=== PATIENT | female | born 1970 | race Caucasian/White ===

== ENCOUNTER 2016-07-13 16:20 | Emergency (ER) | payer BC ==
[~2016-07-13] VITALS: Ht 167.6 cm; Wt 125.2 kg
[2016-07-13] MEDS ORDERED: CARV12.52 PO (16:29)
[2016-07-13] MEDS ORDERED: LISI-338 PO (16:29)
[2016-07-13] MEDS ORDERED: PANT40TA5 PO (16:29)
[2016-07-13] MEDS ORDERED: LEVO175T5 PO (16:29)
[2016-07-13] MEDS ORDERED: MORP15TA PO (17:42)
[2016-07-13] MEDS ORDERED: SULF1TAB24 PO (17:42)
--- NOTE | 2016-07-13 17:46 | PHYS DOC ---
Past Medical History Past Medical History: Hypertension, Hypothyroid Past Surgical History: Hysterectomy, Other Additional Past Surgical Histo: thyroidectomy Additional Information: 03/29 ppd Alcohol Use: None Drug Use: None Adult General Chief Complaint Chief Complaint: LOWER EXT PAIN HPI HPI 46-year-old female presenting to the emergency department today after having right lower leg pain and swelling with rash and fever at home. She reports being seen in clinic for having fever and low back pain with mild polyuria and dysuria. She reports receiving a shot in the muscle of antibiotics which she does not room with the name of and being started on Keflex. She stated they were unsure if she had a urinary tract infection and are waiting for the results of what I'm assuming is a urine culture. They recently called her and told her her white blood cell counts were elevated and she had an infection in her body. She denies vision mentioning the reports blood cultures being positive. Review of systems was negative for chest pain shortness of breath. Positive for rash and right leg pain. All other review of systems is negative unless otherwise noted in history of present illness. Review of Systems Review of Systems SEE ABOVE. Allergies Allergies Allergies Coded Allergies Type Severity Reaction Last Updated Verified No Known Drug Allergies 07/13/16 No Physical Exam Physical Exam Constitutional: Well developed, well nourished, no acute distress, non-toxic appearance. HENT: Normocephalic, atraumatic, bilateral external ears normal, oropharynx moist, no oral exudates, nose normal. [] Eyes: PERRLA, EOMI, conjunctiva normal, no discharge. [] Neck: Normal range of motion, no tenderness, supple, no stridor. Cardiovascular:Heart rate regular rhythm, no murmur [] Lungs & Thorax: Bilateral breath sounds clear to auscultation Abdomen: Bowel sounds normal, soft, no tenderness, no masses, no pulsatile masses. [] Skin: Warm, dry, no erythema, no rash. [] Back: No tenderness, no CVA tenderness. Extremities: Patient has erythema on the anterior surface of her lower extremity. The rash is macular in nature. Normal neurovascular status distally. She does not have an effusion in the right knee. No pain with range of motion of the knee. The rash is mostly on the anterior portion of her leg. Neurologic: Alert and oriented X 3, normal motor function, normal sensory function, no focal deficits noted. Psychologic: Affect normal, judgement normal, mood normal. Current Patient Data Vital Signs Vital Signs Date Time Temp Pulse Resp B/P Pulse Ox O2 Delivery O2 Flow Rate FiO2 07/13/16 16:29 97.9 91 18 141/98 98 Room Air 97.9 EKG EKG [] Radiology/Procedures Radiology/Procedures [] Course & Med Decision Making Course & Med Decision Making Pertinent Labs and Imaging studies reviewed. (See chart for details) [] 46-year-old female presenting to the emergency department with fever and rash after receiving to medications including an intramuscular shot of which the patient is not sure and I do not have access to the patient's medical records to review. The oral medication she was prescribed was Keflex. Differential diagnosis included cellulitis versus allergic reaction. The rash was in the same extremity that she received this shot so this is possibly related. Clinically, the rash appears to be more uticarial in nature. I discussed the case with Dr. San who stated the patient had been on antibiotics for pyelonephritis. Given the patient's rash after initiating antibiotics I changed the patient's antibiotic regimen to Bactrim to follow up with her primary care physician. I also provided her with pain medication to go home with. [id number] discharge instructions were given. Return precautions given. Patient comfortable with plan. Dragon Disclaimer Dragon Disclaimer This electronic medical record was generated, in whole or in part, using a voice recognition dictation system. Departure Departure Impression: Primary Impression: Rash Additional Impressions: Pyelonephritis Allergic reaction Disposition: 01 HOME, SELF-CARE Condition: STABLE Referrals: DORCAS SAN MD (PCP) Patient Instructions: Pyelonephritis, Adult Additional Instructions: Thank you for allowing us to participate in your care today. Stop taking the antibiotic that was prescribed to you today. I provided you with a new antibiotic. Followup with your primary care physician in 3 days if your symptoms do not improve. If you do not have a primary care provider you can ask for a list of our primary care providers. Return to the emergency department you have any new or concerning findings. This should be evaluated by the primary care physician and any necessary consulting services for continued management within a few days after discharge. Return to emergency room if you have any new or concerning symptoms including but not limited to fever, chills, nausea, vomiting, intractable pain, any new rashes, chest pain, shortness of air, uncontrolled bleeding, difficulty breathing, and/or vision loss. You may have been prescribed medication that can change in your level of thinking and ability to operate machinery. These medications include hydrocodone and Ativan. Also, Benadryl has been known to do this as well. Be sure to check with your pharmacist and ask if the medications you've prescribed can affect your level of consciousness. I recommend not operating heavy machinery or driving while on medication such as these. Scripts Morphine Sulfate 15 Mg Tablet1 Tab PO PRN Q6-8HRS PRN SEVERE PAIN #8 TAB Prov:YAYO BOSTON MD 07/13/16 Sulfamethoxazole/Trimethoprim (Bactrim Ds Tablet)1 Each Tablet1 Tab PO BID #14 TAB Prov:YAYO BOSTON MD 07/13/16 Problem Qualifiers Additional Impressions: Allergic reaction Encounter type: initial encounter Qualified Code: T78.40XA - Allergy, unspecified, initial encounter YAYO BOSTON MD Jul 13, 2016 17:46
[2016-07-13 18:02] LABS: BILIRUBIN,URINE NEGATIVE (NEG); GLUCOSE,URINE NEGATIVE (NEG); NITRITE,URINE NEGATIVE (NEG); PH,URINE 6.5; PROTEIN,URINE NEGATIVE (NEG-TRACE)
[2016-07-13 18:05] LABS: NEG OBC UR NEG; POS OBC UR POS
[2016-07-13 18:10] LABS: BACTERIA,URINE FEW /HPF (0-FEW); RBC,URINE RARE /HPF (0-2); SQUAMOUS EPITHELIAL CELL,UR FEW /LPF
[2016-07-13 18:38] LABS: BASO # 0.1 x10^3/uL (0.0-0.2); BASO % 1 % (0-3); EOS % 3 % (0-3); HEMATOCRIT 44.6 % (36.0-47.0); HEMOGLOBIN 14.6 g/dL (12.0-15.5); LYMPH # 2.5 x10^3/uL (1.0-4.8); LYMPH % 23 % (24-48); MEAN CORPUSCULAR HEMOGLOBIN 29 pg (25-35); MEAN CORPUSCULAR HGB CONC 33 g/dL (31-37); MEAN CORPUSCULAR VOLUME 88 fL (79-100); MONO % 7 % (0-9); NEUT % 66 % (31-73); PLATELET COUNT 276 x10^3/uL (140-400); RED BLOOD COUNT 5.09 x10^6/uL (3.50-5.40); WHITE BLOOD COUNT 10.8 x10^3/uL (4.0-11.0)
[2016-07-13 18:59] LABS: CALCIUM 8.8 mg/dL (8.5-10.1); CREATININE 0.9 mg/dL (0.6-1.0); GFR 67.1; POTASSIUM 3.4 mmol/L (3.5-5.1)
[2016-07-13 19:30] VITALS: BP 141/92
[2016-07-13] MEDS ORDERED: MORPHINE IR 15 MG TABLET PO ONE (19:30)
[2016-07-13] MEDS ORDERED: ACETAMINOPHEN 325 MG TABLET. PO ONE (19:30)
== END 2016-07-13 19:51 | disposition home or self-care (01) ==
LOC: ER 16:20
DX: R21 Rash and other nonspecific skin eruption (principal); N12 Tubulo-interstitial nephritis, not specified as acute or chronic; T78.40XA Allergy, unspecified, initial encounter; E03.9 Hypothyroidism, unspecified; I10 Essential (primary) hypertension; F17.200 Nicotine dependence, unspecified, uncomplicated; X58.XXXA Exposure to other specified factors, initial encounter
CPT/HCPCS: 36415; 80048; 81001; 81025; 85027; 87086; 99284

== ENCOUNTER 2016-07-30 12:37 | Inpatient (IN) | payer BC ==
[~2016-07-30] VITALS: Ht 167.6 cm; Wt 127.9 kg
[~2016-07-30 12:37] MED LIST: CARV12.52 PO; LEVO175T5 PO; LISI-338 PO; MORP15TA PO; PANT40TA5 PO; SULF1TAB24 PO
[2016-07-30 13:14] LABS: BILIRUBIN,URINE NEGATIVE (NEG); GLUCOSE,URINE NEGATIVE (NEG); NITRITE,URINE NEGATIVE (NEG); PROTEIN,URINE NEGATIVE (NEG-TRACE); UROBILINOGEN,URINE 0.2 mg/dL (0.2 mg/dL)
[2016-07-30 13:27] LABS: BACTERIA,URINE 0 /HPF (0-FEW); RBC,URINE 0 /HPF (0-2); WBC,URINE 0 /HPF (0-4)
[2016-07-30 13:28] LABS: SQUAMOUS EPITHELIAL CELL,UR FEW /LPF
--- NOTE | 2016-07-30 13:42 | PHYS DOC ---
Past Medical History Past Medical History: Hypertension, Hypothyroid, UTI Past Surgical History: Hysterectomy, Other Additional Past Surgical Histo: thyroidectomy Alcohol Use: None Drug Use: None Adult General Chief Complaint Chief Complaint: ABDOMINAL PAIN HPI HPI 46-year-old female presents the emergency department today with suprapubic abdominal pain that radiates to the flank bilaterally. The pain is sharp intermittent and moderate. She has a history of UTIs and was recently treated with Bactrim and started on Keflex a few days ago by her primary care doctor. Review of systems is negative for chest pain shortness of breath nausea vomiting. She denies fevers chills. She denies diarrhea or constipation. She denies bloody stools. All other review of systems is negative unless otherwise noted in history of present illness. Review of Systems Review of Systems SEE ABOVE. Allergies Allergies Allergies Coded Allergies Type Severity Reaction Last Updated Verified No Known Drug Allergies 07/13/16 No Physical Exam Physical Exam Constitutional: Well developed, well nourished, no acute distress, non-toxic appearance. HENT: Normocephalic, atraumatic, bilateral external ears normal, oropharynx moist, no oral exudates, nose normal. [] Eyes: PERRLA, EOMI, conjunctiva normal, no discharge. [] Neck: Normal range of motion, no tenderness, supple, no stridor. Cardiovascular:Heart rate regular rhythm, no murmur [] Lungs & Thorax: Bilateral breath sounds clear to auscultation Abdomen: Soft mildly tender in the suprapubic region. Negative McBurney's point. Negative Sigala sign. No rebound tenderness or guarding is present. No ecchymosis or erythema of the abdominal wall. Skin: Warm, dry, no erythema, no rash. [] Back: No tenderness, mild left and right CVA tenderness present. Extremities: No tenderness, no cyanosis, no clubbing, ROM intact, no edema. [] Neurologic: Alert and oriented X 3, normal motor function, normal sensory function, no focal deficits noted. [] Psychologic: Affect normal, judgement normal, mood normal. [] Current Patient Data Vital Signs Vital Signs Date Time Temp Pulse Resp B/P (MAP) Pulse Ox O2 Delivery O2 Flow Rate FiO2 07/30/16 13:01 98.8 55 20 166/58 (94) 97 98.8 Lab Values Laboratory Tests Test 07/30/16 13:05 Urine Collection Type Unknown Urine Color Yellow Urine Clarity Clear Urine pH 6.0 Urine Specific Richardson <=1.005 Urine Protein Negative mg/dL (NEG-TRACE) Urine Glucose (UA) Negative mg/dL (NEG) Urine Ketones (Stick) Negative mg/dL (NEG) Urine Blood Trace (NEG) Urine Nitrite Negative (NEG) Urine Bilirubin Negative (NEG) Urine Urobilinogen Dipstick 0.2 mg/dL (0.2 mg/dL) Urine Leukocyte Esterase Negative (NEG) Urine RBC 0 /HPF (0-2) Urine WBC 0 /HPF (0-4) Urine Squamous Epithelial Cells Few /LPF Urine Bacteria 0 /HPF (0-FEW) EKG EKG [] Radiology/Procedures Radiology/Procedures [] Course & Med Decision Making Course & Med Decision Making Pertinent Labs and Imaging studies reviewed. (See chart for details) [] 46-year-old female with suprapubic abdominal pain. Afebrile here. Blood work was obtained. CT abdomen and pelvis obtained. I discussed case with the primary care doctor Dr. San. The patient is had multiple recurrent UTIs and her previous microbiology urine cultures have shown significant resistance patterns including being resistant to Bactrim which she was placed on july 13 of this year. (her prior culture at that time was sensitive to bactrim). We decided to admit the patient given her failure of outpatient therapy for clinical monitoring. Dragon Disclaimer Dragon Disclaimer This electronic medical record was generated, in whole or in part, using a voice recognition dictation system. Departure Departure Impression: Primary Impression: Abdominal pain Additional Impression: History of urinary tract infection Disposition: HOME, SELF-CARE Admitting Physician: Dorcas San Condition: STABLE Referrals: DORCAS SAN MD (PCP) Problem Qualifiers YAYO BOSTON MD July 30, 2016 13:42
[2016-07-30] MEDS ORDERED: IV NORMAL SALINE 1000ML BAG 1,000 ML IV SCH (13:46)
[2016-07-30 13:53] LABS: BASO # 0.1 x10^3/uL (0.0-0.2); BASO % 1 % (0-3); EOS % 3 % (0-3); HEMATOCRIT 41.3 % (36.0-47.0); HEMOGLOBIN 14.1 g/dL (12.0-15.5); LYMPH # 2.4 x10^3/uL (1.0-4.8); LYMPH % 34 % (24-48); MEAN CORPUSCULAR HEMOGLOBIN 30 pg (25-35); MEAN CORPUSCULAR HGB CONC 34 g/dL (31-37); MEAN CORPUSCULAR VOLUME 87 fL (79-100); MONO % 6 % (0-9); NEUT % 56 % (31-73); PLATELET COUNT 328 x10^3/uL (140-400); RED BLOOD COUNT 4.75 x10^6/uL (3.50-5.40); RED CELL DISTRIBUTION WIDTH 14.1 % (11.5-14.5)
[2016-07-30 13:58] LABS: CALCIUM 8.6 mg/dL (8.5-10.1); CREATININE 0.9 mg/dL (0.6-1.0); GFR 67.1; POTASSIUM 3.8 mmol/L (3.5-5.1)
[2016-07-30] MEDS ORDERED: MORPHINE SULFATE 2 MG/ML DISP.SYRIN. IV PRN (14:00)
[2016-07-30] MEDS ORDERED: ONDANSETRON PF 4 MG/2 ML VIAL. IV PRN (14:00)
[2016-07-30 14:03] LABS: ALBUMIN 3.2 g/dL (3.4-5.0); ALBUMIN/GLOBULIN RATIO 0.9 (1.0-1.7); TOTAL BILIRUBIN 0.4 mg/dL (0.2-1.0); TOTAL PROTEIN 6.8 g/dL (6.4-8.2)
--- NOTE | 2016-07-30 16:30 | RAD ---
Indication abdominal pain. Bilateral flank pain. Axial noncontrast images through the abdomen and pelvis were obtained. The study is limited by virtue of the lack of IV and gastrointestinal contrast. No prior imaging is available. The lung bases are clear. There is a small hiatus hernia. There is slight thickening of the esophagus at the GE junction. If esophageal pathology is suspect endoscopy would be advised. Some suggested calcification is seen associated with the herniated portion of the stomach as well as the fundus of the stomach. The liver and spleen appear unremarkable and the gallbladder appears grossly normal.. There is enlargement of the left adrenal gland. It measures approximately 2.6 cm in greatest dimension. Hounsfield unit numbers are 8 indicative of a benign adenoma. The right adrenal gland appears normal. There are no renal calculi on either side. There is no hydronephrosis hydroureter or calcification seen along the course of either ureter. No significant central or retroperitoneal adenopathy is seen. An acute finding in the abdomen is not seen. In the pelvis occasional diverticula are seen associated with the large bowel. No active inflammation is seen. An acute finding in the pelvis is not apparent. Degenerative changes are noted in the lumbar spine. IMPRESSION: No acute finding seen in the abdomen or pelvis. Small hiatus hernia. Suggested mild thickening of the distal esophagus at the GE junction. If esophageal pathology is suspect endoscopy would be Benign left adrenal adenoma PQRS Compliance Statement: One or more of the following individualized dose reduction techniques were utilized for this examination: 1. Automated exposure control 2. Adjustment of the mA and/or kV according to patient size 3. Use of iterative reconstruction technique
[2016-07-30 17:00] VITALS: BP 137/89
== END 2016-07-30 18:00 | disposition home or self-care (01) | DRG 392 ==
LOC: ER 12:37 → 5 SOUTH 15:30
PROVIDERS: ADMIT Internal Medicine; ATTEND Internal Medicine
DX: R10.9 Unspecified abdominal pain (principal); E03.9 Hypothyroidism, unspecified; I10 Essential (primary) hypertension; Z87.440 Personal history of urinary (tract) infections; Z90.710 Acquired absence of both cervix and uterus
CPT/HCPCS: 36415; 74176; 80053; 81001; 83690; 85027; 96374; 96375; J2270; J2405; J7030; 99285-25

== ENCOUNTER → 2016-08-31 | Outpatient (CLI) | payer BC ==
--- NOTE | 2016-09-01 09:39 | SLEEP ---
DATE OF STUDY: 08/31/2016 DATE OF STUDY: 08/31/2016 ATTENDING PHYSICIAN: Dr. Dorcas Smith. The patient is a 46 years old, who weighs 278 pounds with a BMI of 44.9. The patient's [place] score was 14. Home sleep study was performed by [facility]. The total recording time was 441 minutes. During the night study, the patient had 2 central apneas, 32 obstructive apneas, no mixed apneas. There were 3 hypopneas. The patient's apnea-hypopnea index was 5 per hour with the supine index was 7 per hour. Review of nocturnal oximetry study revealed that patient spent 48 minutes with oxygen saturation of less than 90%. The patient's average saturation was 92% with the lowest of 86%. Mean heart rate of 60 beats per minute. IMPRESSION: 1. Mild sleep apnea-hypopnea syndrome with an apnea-hypopnea index of 5 per hour. 2. Nocturnal hypoxia secondary to obstructive sleep apnea/ OHS. RECOMMENDATIONS: 1. The patient has mild sleep apnea, which can be treated with multiple options. I would recommend weight loss as the initial treatment option. 2. If patient remains clinically symptomatic, then consider either a trial of oral appliance or CPAP titration study. 3. Avoid BOX ORDER PERSON depressants. 4. Caution regarding driving until symptoms of sleep apnea resolve with the above recommendations. DANIAL GUZMAN MD DR: GERMAN/tammi JOB#: [id number] / [id number] DORCAS Ocampo MD [facility]
== END | disposition home or self-care (01) ==
LOC: RT 06:04
PROVIDERS: ATTEND Nurse Practitioner
DX: G47.00 Insomnia, unspecified (principal); G47.33 Obstructive sleep apnea (adult) (pediatric)
CPT/HCPCS: G0399

== ENCOUNTER 2017-03-12 18:31 | Emergency (ER) | payer BC ==
[~2017-03-12] VITALS: Ht 167.6 cm; Wt 129.3 kg
[2017-03-12 18:50] VITALS: BP 153/98
[2017-03-12 19:08] LABS: BILIRUBIN,URINE NEGATIVE (NEG); GLUCOSE,URINE NEGATIVE (NEG); NITRITE,URINE NEGATIVE (NEG); PROTEIN,URINE NEGATIVE (NEG-TRACE)
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
[2017-03-12 19:15] LABS: BACTERIA,URINE MODERATE /HPF (0-FEW); RBC,URINE 0 /HPF (0-2); SQUAMOUS EPITHELIAL CELL,UR MANY /LPF; WBC,URINE OCC /HPF (0-4)
[2017-03-12] MEDS ORDERED: HYDROcodone/APAP 5/325MG 1 TAB TABLET ONE (19:56)
== END 2017-03-12 20:00 | disposition home or self-care (01) ==
LOC: ER 18:31
DX: S29.012A Strain of muscle and tendon of back wall of thorax, initial encounter (principal); R51 Headache; I10 Essential (primary) hypertension; E89.0 Postprocedural hypothyroidism; Z87.440 Personal history of urinary (tract) infections; Z90.710 Acquired absence of both cervix and uterus; V43.52XA Car driver injured in collision with other type car in traffic accident, initial encounter; Y93.I9 Activity, other involving external motion; Y92.410 Unspecified street and highway as the place of occurrence of the external cause; Y99.8 Other external cause status
CPT/HCPCS: 81001; 87086; 99284

== ENCOUNTER → 2017-04-06 | Outpatient (CLI) | payer OTHER | END | disposition home or self-care (01) | LOC: KCIC 15:33 | DX: M19.011 Primary osteoarthritis, right shoulder (principal); V89.2XXD Person injured in unspecified motor-vehicle accident, traffic, subsequent encounter | CPT/HCPCS: 73030 ==

== ENCOUNTER → 2017-07-20 | Outpatient (CLI) | payer BC, OTHER ==
[~2017-07-20] MED LIST changes: -CARV12.52 PO; +IOHEXOL 180 MG/ML 10 ML VIAL.; -LEVO175T5 PO; -LISI-338 PO; -MORP15TA PO; -PANT40TA5 PO; -SULF1TAB24 PO; +methylPREDNISolone ACETATE 40 MG/ML VIAL.; +methylPREDNISolone ACETATE 80 MG/ML VIAL.
== END | disposition home or self-care (01) ==
LOC: PNCL 08:55
DX: M51.16 Intervertebral disc disorders with radiculopathy, lumbar region (principal); I10 Essential (primary) hypertension; M19.90 Unspecified osteoarthritis, unspecified site; E03.9 Hypothyroidism, unspecified; E66.9 Obesity, unspecified; F17.210 Nicotine dependence, cigarettes, uncomplicated; Z85.850 Personal history of malignant neoplasm of thyroid; K21.9 Gastro-esophageal reflux disease without esophagitis; Z90.710 Acquired absence of both cervix and uterus; Z98.890 Other specified postprocedural states; Z79.899 Other long term (current) drug therapy
CPT/HCPCS: 62323; J1030; J1040; Q9965

== ENCOUNTER → 2017-08-03 | Outpatient (CLI) | payer BC, OTHER | LOC: PNCL 07:33 | DX: M51.16 Intervertebral disc disorders with radiculopathy, lumbar region (principal); M48.061 Spinal stenosis, lumbar region without neurogenic claudication | CPT/HCPCS: 62323; J1030; J1040; Q9965 ==

== ENCOUNTER 2017-09-27 11:26 | Emergency (ER) | payer BC | END 2017-09-27 14:09 | disposition home or self-care (01) | LOC: ER 11:26 | DX: R22.43 Localized swelling, mass and lump, lower limb, bilateral (principal); I10 Essential (primary) hypertension; E03.9 Hypothyroidism, unspecified; Z87.440 Personal history of urinary (tract) infections; Z90.710 Acquired absence of both cervix and uterus; Z90.49 Acquired absence of other specified parts of digestive tract | CPT/HCPCS: 93970; 99284-25 ==

== ENCOUNTER → 2017-12-08 | Outpatient (CLI) | payer BC ==
[2017-09-27 14:00] VITALS: BP 121/78
[~2017-12-08] MED LIST changes: +CARV12.52 PO; +CYCL10TA2 PO; +GABA-586 PO; -IOHEXOL 180 MG/ML 10 ML VIAL.; +LEVO175T5 PO; +LISI-338 PO; +MORP15TA PO; +NAPR-514 PO; +PANT40TA5 PO; +SULF1TAB24 PO; -methylPREDNISolone ACETATE 40 MG/ML VIAL.; -methylPREDNISolone ACETATE 80 MG/ML VIAL.
--- NOTE | 2017-12-08 14:16 | KCIC ---
EXAM: Chest, 2 views. HISTORY: Pneumonia. COMPARISON: None. FINDINGS: 2 views of the chest are obtained. There is diffuse central predominant interstitial infiltrate. There is no consolidation, pleural effusion or pneumothorax. The heart is normal in size. IMPRESSION: Diffuse central predominant interstitial infiltrate. Electronically signed by: Farheen Lang MD (12/08/2017 2:13 PM) [place] [id number]
== END | disposition home or self-care (01) ==
LOC: KCIC 13:23
PROVIDERS: ATTEND Internal Medicine
DX: J84.89 Other specified interstitial pulmonary diseases (principal); I10 Essential (primary) hypertension; M19.011 Primary osteoarthritis, right shoulder; E03.9 Hypothyroidism, unspecified; F17.210 Nicotine dependence, cigarettes, uncomplicated; K21.9 Gastro-esophageal reflux disease without esophagitis; Z87.440 Personal history of urinary (tract) infections; Z85.850 Personal history of malignant neoplasm of thyroid; Z90.49 Acquired absence of other specified parts of digestive tract; Z90.710 Acquired absence of both cervix and uterus
CPT/HCPCS: 71046

== ENCOUNTER → 2017-12-30 | Outpatient (CLI) | payer BC ==
[2017-09-27 14:00] VITALS: BP 121/78
--- NOTE | 2017-12-30 23:58 | PAIN ---
DATE OF SERVICE: 12/30/2017 PROGRESS NOTE FOR PAIN CLINIC DIAGNOSES: Lumbar radiculopathy with lumbar degenerative disk disease, lumbar herniated disk and lumbar spinal stenosis. HISTORY OF PRESENT ILLNESS: The patient is a 47-year-old female who returns for followup status post lumbar epidural steroid injection x 2, last seen on 08/03/2017. The patient reports that she did well but only for a few weeks, about 50% improvement but only for about 2-3 weeks and the pain returned basically to baseline in the low back, bilateral lower extremities, mostly in the posterior gluteus, posterior thighs, anterior lateral thighs, burning and stinging, also aching and sharp across the back, described as constant, becoming more severe, more unbearable, worse with weightbearing, walking and standing. The patient reports it does not awaken her from sleep at night. She feels better with sitting or lying down but with standing and walking, it is becoming more noticeable. The patient has had her gabapentin increased to 1200 mg a day and also is taking morphine sulfate, which does help the pain but only lasts for about 3-4 hours. The patient reports the pain is a 10 on a scale of 10 at its worst, 7 on average, is 5 at its least and is a 7 today. The patient reports no new motor or sensory deficits and no new bowel or bladder incontinence or other complaints. PHYSICAL EXAMINATION: VITAL SIGNS: The patient's blood pressure 133/79, pulse 61, respirations 18, temperature 98.7 degrees Fahrenheit, height 5 feet 6 inches and weight is 283 pounds. GENERAL: The patient is awake, alert, oriented, appropriate and very pleasant demeanor. HEENT: Head shows normocephalic and atraumatic. Extraocular movements are intact and symmetrical. Oral cavity: Mucous membranes moist and pink. Dentition is intact. NECK: Shows anterior throat supple without palpable lymphadenopathy noted. Swallow reflex symmetrical. CHEST: Shows normal on inspection. Breath sounds clear to auscultation bilaterally. HEART: Shows S1 and S2 clear. No murmurs auscultated. ABDOMEN: Soft, nontender and nondistended. No palpable organomegaly is noted. No rebound or guarding demonstrated. EXTREMITIES: The patient's lower extremities show deep tendon reflexes at 1+ in the patellar and tendo-calcaneus tendons. Motor exam is strong with 5/5 dorsiflexion, extension and equal. Peripheral pulses are 1+ posterior tibia. No peripheral edema is noted. Questions were discussed with the patient. The patient's old chart was reviewed as well as her current medication regimen updated. Current review of systems updated today as well and we discussed additional physical therapies as well as additional water therapy and she is currently a [employer] member and is using the pool for water aerobics. The patient reports when she is in the pool, she feels great and she feels she could do anything she wants. We discussed this and with regard to weight loss, the patient is working on this and also seeking some alternative surgical procedures for weight loss as well as she and her are both interested in doing this for themselves. We discussed some dietary strategies as well as exercise strategy and especially water therapy and aerobics and encouraged her to do this at least 3 times a week if she can in the pool with strengthening and core strengthening as well. The patient will work on this. We will be available for any interventional techniques if she decides she would like to pursue these. She is not interested in this at this time as she has been fairly limited in effectiveness. The patient will follow up at this time on as needed basis. ELY ARECHIGA MD DR: ALANIS/tammi JOB#: [id number] / [id number]
== END | disposition home or self-care (01) ==
LOC: PNCL 08:47
PROVIDERS: ATTEND Anesthesiology
DX: M51.16 Intervertebral disc disorders with radiculopathy, lumbar region (principal); M48.061 Spinal stenosis, lumbar region without neurogenic claudication
CPT/HCPCS: 99212

== ENCOUNTER → 2018-09-06 | Outpatient (CLI) | payer BC ==
[2017-09-27 14:00] VITALS: BP 121/78
[~2018-09-06] MED LIST changes: +CARV12.511 PO; -CARV12.52 PO; -GABA-586 PO; +GABA300C18 PO
--- NOTE | 2018-09-06 08:40 | RAD ---
Abdominal ultrasound, 09/06/2018: HISTORY: Abdominal pain The gallbladder is within normal limits in size. There is no sonographic evidence of cholelithiasis. The gallbladder ayala are not thickened. The common hepatic duct measures 5 mm which is at the upper limits of normal. There is no evidence of a hepatic mass. The pancreas and much of the aorta and inferior vena cava were obscured by overlying bowel. The spleen is of normal size. No renal abnormality is detected. No free fluid is evident in the abdomen. IMPRESSION: 1. No acute abdominal abnormality is detected. 2. The pancreas and central retroperitoneum were obscured by overlying bowel. Electronically signed by: Jordan Gant MD (09/06/2018 8:37 AM) [facility]
== END | disposition home or self-care (01) ==
LOC: US 07:08
PROVIDERS: ATTEND Internal Medicine
DX: R10.9 Unspecified abdominal pain (principal)
CPT/HCPCS: 76700

== ENCOUNTER → 2020-11-18 | Outpatient (CLI) | payer OTHER ==
[2017-09-27 14:00] VITALS: BP 121/78
[~2020-11-18] MED LIST changes: -LISI-338 PO; +LISI-517 PO; -PANT40TA5 PO; +PANT40TA77 PO
--- NOTE | 2020-11-18 13:39 | KCIC ---
EXAM: Left great toe, 2 views. HISTORY: Pain and swelling. Trauma. COMPARISON: None. FINDINGS: 2 views of the left great toe are obtained. There is no convincing fracture. There is no fo reign body. There is slight deformity of the distal aspect of the fifth proximal phalanx, likely deve lopmental or the sequela of a healed fracture. There is accessory navicular. There is a moderate plan tar spur. There are prominent fragmented enthesophytes at the Achilles tendon insertion. IMPRESSION: No convincing acute osseous finding. Electronically signed by: Farheen Lang MD (11/18/2020 1:37 PM) [id number]
== END ==
LOC: KCIC 12:33
PROVIDERS: ATTEND Internal Medicine
DX: M77.8 Other enthesopathies, not elsewhere classified (principal); M20.5X2 Other deformities of toe(s) (acquired), left foot
CPT/HCPCS: 73660

== ENCOUNTER → 2021-02-06 | Outpatient (CLI) | payer OTHER ==
[~2021-02-06] MED LIST changes: +CYCL10TA19 PO; -CYCL10TA2 PO; +HYDR12.575 PO; -LISI-517 PO; +LISI5TAB15 PO
[2021-02-06 09:08] VITALS: BP 128/75
--- NOTE | 2021-02-06 14:14 | KCIC ---
EXAM: 3 Views Right Shoulder DATE: 02/06/2021 11:01 AM INDICATION: Reason: Acute Rt shoulder pain. / Spl. Instructions: / History: COMPARISON: No Prior FINDINGS: There is no evidence for acute fracture or dislocation. AC joint is congruent. Mild right AC joint de generative change. Glenohumeral osteophytes. Humeral head is not high riding. IMPRESSION: 1. No acute fracture or dislocation. 2. Mild right AC joint and glenohumeral joint degenerative change Electronically signed by: Subhash Regan MD (02/06/2021 2:12 PM) [id number]
== END ==
LOC: KCIC 10:57
PROVIDERS: ATTEND Physician Assistant
DX: M19.011 Primary osteoarthritis, right shoulder (principal); M25.711 Osteophyte, right shoulder
CPT/HCPCS: 73030

== ENCOUNTER → 2021-02-06 | Day surgery (SDC) | payer OTHER ==
[~2021-02-06] VITALS: Ht 167.6 cm; Wt 100.4 kg
[~2021-02-06] MED LIST changes: +HYDROmorphone 2 MG/ML VIAL IVP PRN; +IV RINGERS,LACTATED 1000ML 1,000 ML IV SCH; +MORPHINE SULFATE 2 MG/ML INJ. IVP PRN; +PROCHLORPERAZINE 10 MG/2 ML VIAL. IVP PRN; +PROPOFOL 10 MG/ML (20ML) VIAL. IV ONE; +fentaNYL PF VIAL 100 MCG/2 ML VIAL IVP PRN
[2021-02-06 06:58] VITALS: BP 140/80
[2021-02-06 09:08] VITALS: BP 128/75
== END | disposition home or self-care (01) ==
LOC: ENDOS 06:18
PROVIDERS: ATTEND Internal Medicine Gastroenterology
DX: Z12.11 Encounter for screening for malignant neoplasm of colon (principal); K64.0 First degree hemorrhoids; K57.30 Diverticulosis of large intestine without perforation or abscess without bleeding; K63.89 Other specified diseases of intestine; I10 Essential (primary) hypertension; K21.9 Gastro-esophageal reflux disease without esophagitis; M19.90 Unspecified osteoarthritis, unspecified site; F32.9 Major depressive disorder, single episode, unspecified; F17.210 Nicotine dependence, cigarettes, uncomplicated; Z86.010 Personal history of colon polyps; Z90.710 Acquired absence of both cervix and uterus; Z90.49 Acquired absence of other specified parts of digestive tract; Z98.890 Other specified postprocedural states; Z79.899 Other long term (current) drug therapy
CPT/HCPCS: 45378; J2704

== ENCOUNTER → 2021-03-03 | Outpatient (CLI) | payer OTHER ==
[2021-02-06 09:08] VITALS: BP 128/75
[~2021-03-03] MED LIST changes: +BARIUM SULFATE 105% 1,900 ML SUSP PO ONE; -HYDROmorphone 2 MG/ML VIAL IVP PRN; -IV RINGERS,LACTATED 1000ML 1,000 ML IV SCH; -MORPHINE SULFATE 2 MG/ML INJ. IVP PRN; -PROCHLORPERAZINE 10 MG/2 ML VIAL. IVP PRN; -PROPOFOL 10 MG/ML (20ML) VIAL. IV ONE; -fentaNYL PF VIAL 100 MCG/2 ML VIAL IVP PRN
--- NOTE | 2021-03-03 18:24 | RAD ---
EXAMINATION: DG AIR-CONTRAST BARIUM ENEMA 03/03/2021 8:01 AM HISTORY: Incomplete colonoscopy COMPARISON: None. TECHNIQUE: An overhead mural artist image was obtained. A rectal tube was inserted and the balloon gently in flated. Barium contrast was administered into the colon via the rectal tube and routine double contra st barium enema was performed. FINDINGS: Contrast flowed through the entire colon and refluxed into the small bowel. The colon distended declan lly without evidence of mass or stricture. On air contrast exam are 2 small round foci of contrast po oling in the sigmoid colon, likely in small diverticula. There is limited air contrast evaluation of the cecum, ascending colon, and splenic flexure due to retained contrast. Total fluoroscopic time:3.5 minute. IMPRESSION: 1. Contrast reached the small bowel. No evidence of obstructing colonic mass or stricture. 2. There are a few small diverticula in the sigmoid colon. Otherwise unremarkable exam. Electronically signed by: Ya Ozuna MD (03/03/2021 6:22 PM) [id number]
== END ==
LOC: RAD 10:18
PROVIDERS: ATTEND Internal Medicine Gastroenterology
DX: K57.30 Diverticulosis of large intestine without perforation or abscess without bleeding (principal); K56.699 Other intestinal obstruction unspecified as to partial versus complete obstruction
CPT/HCPCS: 74280

== ENCOUNTER → 2021-05-18 | Outpatient (CLI) | payer OTHER ==
[2021-02-06 09:08] VITALS: BP 128/75
[~2021-05-18] MED LIST changes: -BARIUM SULFATE 105% 1,900 ML SUSP PO ONE
[2021-05-18 08:17] LABS: BASO # 0.1 x10^3/uL (0.0-0.2); BASO % 1 % (0-3); EOS # 0.3 x10^3/uL (0.0-0.7); EOS % 4 % (0-3); HEMATOCRIT 40.6 % (36.0-47.0); HEMOGLOBIN 13.4 g/dL (12.0-15.5); LYMPH # 2.4 x10^3/uL (1.0-4.8); LYMPH % 29 % (24-48); MEAN CORPUSCULAR HEMOGLOBIN 31 pg (25-35); MEAN CORPUSCULAR HGB CONC 33 g/dL (31-37); MEAN CORPUSCULAR VOLUME 93 fL (79-100); MONO # 0.5 x10^3/uL (0.0-1.1); MONO % 6 % (0-9); NEUT % 61 % (31-73); PLATELET COUNT 325 x10^3/uL (140-400); RED BLOOD COUNT 4.36 x10^6/uL (3.50-5.40); RED CELL DISTRIBUTION WIDTH 13.6 % (11.5-14.5); WHITE BLOOD COUNT 8.2 x10^3/uL (4.0-11.0)
[2021-05-18 08:35] LABS: ALBUMIN 3.2 g/dL (3.4-5.0); TOTAL PROTEIN 6.5 g/dL (6.4-8.2)
[2021-05-18 08:36] LABS: CALCIUM 8.2 mg/dL (8.5-10.1); CREATININE 0.8 mg/dL (0.6-1.0); GFR 75.6; POTASSIUM 3.3 mmol/L (3.5-5.1); TOTAL BILIRUBIN 0.2 mg/dL (0.2-1.0)
[2021-05-18 08:43] LABS: CHOLESTEROL/HDL RATIO 2.5
[2021-05-18 08:47] LABS: THYROID STIM HORMONE (TSH) 0.714 uIU/mL (0.358-3.74)
[2021-05-18 09:37] LABS: FREE T4 1.18 ng/dL (0.76-1.46)
[2021-05-19 01:08] LABS: HEMOGLOBIN A1C 5.2 % (4.8-5.6)
[2021-05-19 13:24] LABS: CREAT RD UR 28.6 mg/dL (Not Estab.); MICRO CREAT RATIO <10 mg/g creat (0-29); MICROALB RD UR <3.0 ug/mL (Not Estab.)
== END ==
LOC: LAB 07:36
PROVIDERS: ATTEND Internal Medicine
DX: E11.9 Type 2 diabetes mellitus without complications (principal); E03.9 Hypothyroidism, unspecified
CPT/HCPCS: 80053; 80061; 82043; 82570; 83036; 84439; 84443; 85025

== ENCOUNTER 2021-05-23 12:30 | Emergency (ER) | payer OTHER ==
[~2021-05-23] VITALS: Ht 160 cm; Wt 81.8 kg
[2021-05-23] MEDS ORDERED: IV DEXTROSE 10% 500 ML IV ONE (12:39)
[2021-05-23] MEDS ORDERED: DEXTROSE ORAL GEL 15 GM TUBE. ONE (12:43)
[2021-05-23] MEDS ORDERED: DEXTROSE 50% 25 GM / 50ML DISP.SYRIN. IV ONE ×2 (12:45)
[2021-05-23 13:00] LABS: BASO # 0.1 x10^3/uL (0.0-0.2); BASO % 1 % (0-3); EOS # 0.9 x10^3/uL (0.0-0.7); EOS % 6 % (0-3); HEMATOCRIT 44.8 % (36.0-47.0); HEMOGLOBIN 14.5 g/dL (12.0-15.5); LYMPH # 5.2 x10^3/uL (1.0-4.8); LYMPH % 35 % (24-48); MEAN CORPUSCULAR HEMOGLOBIN 30 pg (25-35); MEAN CORPUSCULAR HGB CONC 32 g/dL (31-37); MEAN CORPUSCULAR VOLUME 94 fL (79-100); MONO # 1.6 x10^3/uL (0.0-1.1); MONO % 11 % (0-9); NEUT % 47 % (31-73); PLATELET COUNT 424 x10^3/uL (140-400); RED BLOOD COUNT 4.79 x10^6/uL (3.50-5.40); RED CELL DISTRIBUTION WIDTH 13.6 % (11.5-14.5); WHITE BLOOD COUNT 14.8 x10^3/uL (4.0-11.0)
[2021-05-23 13:03] LABS: CALCIUM 8.8 mg/dL (8.5-10.1); CREATININE 0.8 mg/dL (0.6-1.0); GFR 75.6; POTASSIUM 3.2 mmol/L (3.5-5.1)
[2021-05-23 13:09] LABS: ALBUMIN 3.7 g/dL (3.4-5.0); ALBUMIN/GLOBULIN RATIO 1.1 (1.0-1.7); TOTAL BILIRUBIN 0.3 mg/dL (0.2-1.0); TOTAL PROTEIN 7.1 g/dL (6.4-8.2)
--- NOTE | 2021-05-23 13:18 | RAD ---
AP chest. HISTORY: Altered mental status AP view was taken of the chest. Lungs are free of infiltrates. Heart is normal in size. There is no p leural effusion. IMPRESSION: 1. No acute infiltrates. Electronically signed by: Kale Lehman MD (05/23/2021 1:15 PM) [id number]
[2021-05-23 13:46] LABS: PROTHROMBIN TIME PATIENT 12.3 SEC (11.7-14.0)
[2021-05-23] MEDS ORDERED: IOHEXOL 300 MG/ML 100ML VIAL. IV ONE (14:00)
[2021-05-23] MEDS ORDERED: POTASSIUM BICARB 20 MEQ EFFERVESCENT TABLET. PO ONE (14:00)
[2021-05-23] MEDS ORDERED: CONTRAST GIVEN. MC PRN (14:15)
--- NOTE | 2021-05-23 14:37 | RAD ---
CT abdomen pelvis with contrast dated 05/23/2021. COMPARISON: 07/30/2016. INDICATION: Hypoglycemia. TECHNIQUE: Contiguous axial imaging the M pelvis performed after the administration of 75 cc Omnipaque 300. One or more of the following individualized dose reduction techniques were utilized for this examinat ion: 1. Automated exposure control 2. Adjustment of the mA and/or kV according to patient size 3. Use of iterative reconstruction technique FINDINGS: Limited images of lung bases are clear. Heart size is upper limits of normal. No pleural or pericardi al effusion. Liver, spleen, pancreas are unremarkable. No apparent pancreatic mass. The intrahepatic and extra hep atic biliary tree are mildly dilated. No apparent filling defect. Gallbladder surgically absent. There is low-density enlargement of the bilateral adrenal glands, similar to prior study. Kidneys are unremarkable. No stone or hydronephrosis. Evidence of prior gastric bypass. GI tract is otherwise normal in caliber and contour. No bowel wall thickening. No inflammatory stranding in the mesentery. No ascites or lymphadenopathy. Abdominal aort a normal in caliber. Images of pelvis show mildly distended urinary bladder. Uterus is surgically absent. No free fluid or pelvic adenopathy. Bone windows show no acute finding. Multilevel spondylosis. IMPRESSION: 1. No acute abnormality of abdomen or pelvis. No apparent pancreatic mass. 2. Mildly dilated intrahepatic and extra hepatic biliary tree, likely related to age and postcholecys tectomy state. Correlate with laboratory values. 3. Low-density enlargement of the bilateral adrenal gland, stable from prior study, likely related to adenomatous hyperplasia Electronically signed by: Yo Peter MD (05/23/2021 2:34 PM) SYEDA
--- NOTE | 2021-05-23 14:41 | PHYS DOC ---
Past Medical History Past Medical History: Hypertension, Hypothyroid, UTI Past Surgical History: Appendectomy, Hysterectomy, Other Additional Past Surgical Histo: thyroidectomy Smoking Status: Never Smoker Alcohol Use: None Drug Use: None General Adult EDM: Chief Complaint: HYPOGLYCEMIA HPI: HPI: 50-year-old female past medical history of hypertension, hypothyroidism, morbid obesity with gastric bypass and history of recurrent hypoglycemia, presents to the ED brought in by her with concern for altered mental status. Glucose was found to be 22. stated that pt was in line at [facility] when she did sign her speech. Has been recommended this presentation, similar prior to hypoglycemia. Patient brought to the ER and since she was unable to walk out of her car. Patient tolerated juice on arrival. Patient states she does have glucose tabs did not have them in her purse. Has been referred to endocrine but never saw them due to difficulty scheduling. No prior CT imaging study. Reports frequent hypoglycemia, usually on a weekly basis. Denies any syncope or head injury or loss of consciousness. No associated weight gain. Review of Systems: Review of Systems: Constitutional: Denies fever or chills. [] Eyes: Denies change in visual acuity. [] HENT: Denies nasal congestion or sore throat. [] Respiratory: Denies cough or shortness of breath. [] Cardiovascular: Denies chest pain or edema. [] GI: Denies abdominal pain, nausea, vomiting, bloody stools or diarrhea. [] : Denies dysuria or hematuria Musculoskeletal: Denies back pain or joint pain. [] Integument: Denies rash or diaphoresis Neurologic: Denies headache, neck pain, focal weakness or sensory changes. [] Endocrine: Denies polyuria or polydipsia. [] Lymphatic: Denies swollen glands. [] Psychiatric: Denies depression or anxiety. [] Heart Score: C/O Chest Pain: No Risk Factors: Risk Factors: DM, Current or recent (<one month) smoker, HTN, HLP, family history of CAD, obesity. Risk Scores: Score 0 - 3: 2.5% MACE over next 6 weeks - Discharge Home Score 4 - 6: 20.3% MACE over next 6 weeks - Admit for Clinical Observation Score 7 - 10: 72.7% MACE over next 6 weeks - Early Invasive Strategies Current Medications: Current Medications Medications (Trade) Dose Ordered Sig/Macie Start Time Stop Time Status Last Admin Dose Admin Dextrose 500 ml @ 0 mls/hr 1X ONCE 05/23/21 12:39 05/23/21 12:41 DC 05/23/21 12:39 500 MLS/HR Dextrose (Dextrose 50%-Water Syringe) 25 gm 1X ONCE 05/23/21 12:45 05/23/21 12:46 UNV Glucose (Glutose 15) 15 gm STK-MED ONCE 05/23/21 12:43 05/23/21 12:44 DC Info (CONTRAST GIVEN -- Rx MONITORING) 1 each PRN DAILY PRN 05/23/21 14:15 05/25/21 14:14 Iohexol (Omnipaque 300 Mg/ml) 75 ml 1X ONCE 05/23/21 14:00 05/23/21 14:01 DC 05/23/21 14:12 75 ML Potassium Bicarbonate (Potassium Effervescent Tablet) 40 meq 1X ONCE 05/23/21 14:00 05/23/21 14:01 DC 05/23/21 14:34 40 MEQ Allergies: Allergies: Allergies Coded Allergies Type Severity Reaction Last Updated Verified No Known Drug Allergies 02/06/21 No Physical Exam: PE: Constitutional: Well developed, well nourished, no acute distress, non-toxic appearance. HENT: Normocephalic, atraumatic, Eyes: EOMI, conjunctiva normal, no discharge. Neck: Normal range of motion, supple, Cardiovascular: S1/2 present, regular rhythm Lungs & Thorax: Speaking in full sentences, bilateral equal chest rise, no tachypnea or increased work of breathing Abdomen: soft, no tenderness, Skin: Warm, dry, no erythema, no rash. [] Extremities: No tenderness, no cyanosis, no lower extremity edema Neurologic: Alert with slow mentation, normal motor function, normal sensory function, no focal deficits noted. [] Psychologic: Affect normal, judgement normal, mood normal. [] Current Patient Data: Labs: Laboratory Tests Test 05/23/21 12:38 05/23/21 12:44 05/23/21 12:49 05/23/21 13:20 Ethyl Alcohol Level < 10 mg/dL (0-10) White Blood Count 14.8 x10^3/uL (4.0-11.0) H Red Blood Count 4.79 x10^6/uL (3.50-5.40) Hemoglobin 14.5 g/dL (12.0-15.5) Hematocrit 44.8 % (36.0-47.0) Mean Corpuscular Volume 94 fL (79-100) Mean Corpuscular Hemoglobin 30 pg (25-35) Mean Corpuscular Hemoglobin Concent 32 g/dL (31-37) Red Cell Distribution Width 13.6 % (11.5-14.5) Platelet Count 424 x10^3/uL (140-400) H Neutrophils (%) (Auto) 47 % (31-73) Lymphocytes (%) (Auto) 35 % (24-48) Monocytes (%) (Auto) 11 % (0-9) H Eosinophils (%) (Auto) 6 % (0-3) H Basophils (%) (Auto) 1 % (0-3) Neutrophils # (Auto) 7.0 x10^3/uL (1.8-7.7) Lymphocytes # (Auto) 5.2 x10^3/uL (1.0-4.8) H Monocytes # (Auto) 1.6 x10^3/uL (0.0-1.1) H Eosinophils # (Auto) 0.9 x10^3/uL (0.0-0.7) H Basophils # (Auto) 0.1 x10^3/uL (0.0-0.2) Sodium Level 144 mmol/L (136-145) Potassium Level 3.2 mmol/L (3.5-5.1) L Chloride Level 106 mmol/L (98-107) Carbon Dioxide Level 24 mmol/L (21-32) Anion Gap 14 (6-14) Blood Urea Nitrogen 9 mg/dL (7-20) Creatinine 0.8 mg/dL (0.6-1.0) Estimated GFR (Cockcroft-Gault) 75.6 BUN/Creatinine Ratio 11 (6-20) Glucose Level 65 mg/dL (70-99) L Calcium Level 8.8 mg/dL (8.5-10.1) Total Bilirubin 0.3 mg/dL (0.2-1.0) Aspartate Amino Transferase (AST) 14 U/L (15-37) L Alanine Aminotransferase (ALT) 22 U/L (14-59) Alkaline Phosphatase 98 U/L (46-116) Troponin I High Sensitivity 6 ng/L (4-50) Total Protein 7.1 g/dL (6.4-8.2) Albumin 3.7 g/dL (3.4-5.0) Albumin/Globulin Ratio 1.1 (1.0-1.7) Glucose (Fingerstick) 104 mg/dL (70-99) H Prothrombin Time 12.3 SEC (11.7-14.0) Prothrombin Time INR 0.9 (0.8-1.1) Activated Partial Thromboplast Time 24 SEC (24-38) Test 05/23/21 14:29 Glucose (Fingerstick) 75 mg/dL (70-99) Laboratory Tests 05/23/21 12:44 Laboratory Tests 05/23/21 12:44 Vital Signs: Vital Signs Date Time Temp Pulse Resp B/P (MAP) Pulse Ox O2 Delivery O2 Flow Rate FiO2 05/23/21 12:30 97.0 86 16 186/93 (124) 98 Room Air 97.0 EKG: EKG: Sinus rhythm 88 beats per minute, no axis deviation, first-degree AV block 224, QTc 441, no T wave inversion, no ST ovation or ST depression Radiology/Procedures: Radiology/Procedures: IMAGING REPORT Signed PATIENT: ANETA MARCELO ACCOUNT: [id number] : 1970 LOCATION: ER AGE: 50 SEX: F EXAM STATUS: REG ER ORD. PHYSICIAN: BOLIVAR KEBEDE DO REASON: hypoglycemai, insulinoma? PROCEDURE: CT ABD PELV W/ IV CONTRST ONLY CT abdomen pelvis with contrast dated 05/23/2021. COMPARISON: 07/30/2016. INDICATION: Hypoglycemia. TECHNIQUE: Contiguous axial imaging the M pelvis performed after the administration of 75 cc Omnipaque 300. One or more of the following individualized dose reduction techniques were utilized for this examination: 1. Automated exposure control 2. Adjustment of the mA and/or kV according to patient size 3. Use of iterative reconstruction technique FINDINGS: Limited images of lung bases are clear. Heart size is upper limits of normal. No pleural or pericardial effusion. Liver, spleen, pancreas are unremarkable. No apparent pancreatic mass. The intrahepatic and extra hepatic biliary tree are mildly dilated. No apparent filling defect. Gallbladder surgically absent. There is low-density enlargement of the bilateral adrenal glands, similar to prior study. Kidneys are unremarkable. No stone or hydronephrosis. Evidence of prior gastric bypass. GI tract is otherwise normal in caliber and contour. No bowel wall thickening. No inflammatory stranding in the mesentery. No ascites or lymphadenopathy. Abdominal aorta normal in caliber. Images of pelvis show mildly distended urinary bladder. Uterus is surgically absent. No free fluid or pelvic adenopathy. Bone windows show no acute finding. Multilevel spondylosis. IMPRESSION: 1. No acute abnormality of abdomen or pelvis. No apparent pancreatic mass. 2. Mildly dilated intrahepatic and extra hepatic biliary tree, likely related to age and postcholecystectomy state. Correlate with laboratory values. 3. Low-density enlargement of the bilateral adrenal gland, stable from prior study, likely related to adenomatous hyperplasia Electronically signed by: Yo Peter MD (05/23/2021 2:34 PM) [facility] DICTATED and SIGNED BY: YO PETER MD DATE: 05/23/21 [id number] 0 IMAGING REPORT Signed PATIENT: ANETA MARCELO ACCOUNT: [id number] : 1970 LOCATION: ER AGE: 50 SEX: F EXAM STATUS: REG ER ORD. PHYSICIAN: BOLIVAR KEBEDE DO REASON: ams PROCEDURE: PORTABLE CHEST 1V AP chest. HISTORY: Altered mental status AP view was taken of the chest. Lungs are free of infiltrates. Heart is normal in size. There is no pleural effusion. IMPRESSION: 1. No acute infiltrates. Electronically signed by: Kale Lehman MD (05/23/2021 1:15 PM) [id number] DICTATED and SIGNED BY: KALE LEHMAN MD DATE: 05/23/21 [id number] 0 Course & Med Decision Making: Course & Med Decision Making Pertinent Labs and Imaging studies reviewed. (See chart for details) Concern for hypoglycemia in a well-appearing patient, no head injury and has been awake and alert throughout the ED stay with medical history made capacity. Patient tolerated food prior to ED discharge. Reports frequent episodes of hypoglycemia, unsure if she has had any lab testing performed for insulinoma. CT imaging concerning for adrenal hyperplasia was printed and given to patient to follow-up with endocrine. I recommended to put glucose tabs in purse, car, work office and to sit down when symptoms start. Will discharge home with strict ED return precautions were given for altered mental status, loss of consciousness or head injury. Encouraged urgent outpatient follow-up with PMD for routine care and endocrine for definitive management. Life-threatening processes were considered but are low suspicion at this time, given history, physical exam and ED workup. Pt was educated on all prescription medications and adverse effects. All patient's questions were answered and pt was stable at time of discharge. Life/limb-threatening differential includes but is not limited to, acute angle- closure glaucoma, uveitis, corneal abrasion, CRVO/CRAO, PRES, retinal detachment, vitreous hemorrhage, temporal arteritis, optic neuritis, high- altitude retinopathy foreign body, globe rupture, episcleritis, corneal ulcer, traumatic iritis, hyphema or empyema, orbital cellulitis, orbital hematoma, lens dislocation, orbital wall fracture or toxidrome (digoxin, methanol, anticholinergic, hallucinogenic, etc). I have spoken with the patient and/or caregivers. I explained the patient's condition, diagnoses and treatment plan based on the information available to me at this time. I have answered the patient and/or caregiver's questions and addressed any concerns. The patient and/or caregivers have a good understanding of patient's diagnosis, condition and treatment plan as can be expected at this point. Vital signs have been stable. Patient's condition is stable and appr opriate for discharge from the emergency department. Patient will pursue further outpatient evaluation with primary care physician or other designated or consulting physician as outlined in the discharge instructions. The patient and/or caregivers are agreeable to this plan of care and follow-up instructions have been explained in detail. The patient and/or caregivers have received these instructions in written form and have expressed an understanding of the discharge instructions. The patient and/or caregivers are aware that any significant change of condition or worsening of symptoms sh ould prompt immediate return to this or the closest emergency department or call to 911. Ney Disclaimer: Ney Disclaimer: This electronic medical record was generated, in whole or in part, using a voice recognition dictation system. Departure Departure Impression: Primary Impression: Hypoglycemia Additional Impression: Adrenal hyperplasia Disposition: HOME / SELF CARE / HOMELESS Condition: STABLE Referrals: DORCAS SAN MD (PCP) Follow-up with 1 week for reevaluation, return to the ED if you should develop any recurrent syncope, head injury or altered mental status Patient Instructions: Hypoglycemia (Low Blood Sugar) Additional Instructions: [facility] -Endocrinology FOR DEFINITIVE MANAGEMENT -consider followup labs tests including MEN-1, c-peptide & proinsulin [facility] [address] [facility] [address] [place] [address] OR [facility] - [address] [place] [address] OR [facility] [address] [facility] [address] [place] [address] EMERGENCY DEPARTMENT GENERAL DISCHARGE INSTRUCTIONS Thank you for coming to [facility] Emergency Department (ED) today and trusting us with you care. We trust that you had a positive experience in our Emergency Department. If you wish to speak to the department management, you may call the Director at [phone]. YOUR FOLLOW UP INSTRUCTIONS ARE FOLLOWS: 1. Do you have a private Doctor? If you do not have a private doctor, please ask for a resource list of physicians or clinics that may be able to assist you with follow up care. 2. The Emergency Physicain has interpreted your x-rays. The X-Ray specialist will also review them. If there is a change in the findings, you will be notified in 48 hours when at all possible. 3. A lab test or culture has been done, your results will be reviewed and you will be notified if you need a change in treatment. ADDITIONAL INSTRUCTIONS AND INFORMATION: 1. Your care today has been supervised by a physician who is specially trained in emergency care. Many problems require more than one evaluation for a complete diagnosis and treatment. We recommend that you schedule your follow up appointment as recommended to ensure complete treatment of you illness or injury. If you are unable to obtain follow up care and continue to have a problem, or if your condition worsens, we recommend that you return to the ED. 2. We are not able to safely determine your condition over the phone nor are we able to give sound medical advice over the phone. For these safety reasons, if you call for medical advice we will ask you to come to the ED for further evaluation. 3. If you have any questions regarding these discharge instructions please call the ED at [phone]. SAFETY INFORMATION: In the interest of safety, wellness, and injury prevention; we encourage you to wear your sealbelt, if you smoke; quite smoking, and we encourage family to use a protective helmet for bicycling and other sporting events that present an increased risk for head injury. IF YOUR SYMPTOMS WORSEN OR NEW SYMPTOMS DEVELOP, OR YOU HAVE CONCERNS ABOUT YOUR CONDITION; OR IF YOUR CONDITION WORSENS WHILE YOU ARE WAITING FOR YOUR FOLLOW UP APPOINTMENT; EITHER CONTACT YOUR PRIMARY CARE DOCTOR, THE PHYSICIAN WHOSE NAME AND NUMBER YOU WERE GIVEN, OR RETURN TO THE ED IMMEDIATELY. BOLIVAR GREGG DO May 23, 2021 14:41
[2021-05-23 14:43] VITALS: BP 158/102
--- NOTE | 2021-05-23 16:04 | EKG ---
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
== END 2021-05-23 15:51 | disposition home or self-care (01) ==
LOC: ER 12:30
DX: E16.2 Hypoglycemia, unspecified (principal); E27.8 Other specified disorders of adrenal gland; I10 Essential (primary) hypertension; Z90.89 Acquired absence of other organs; Z90.710 Acquired absence of both cervix and uterus; R41.82 Altered mental status, unspecified; Z98.84 Bariatric surgery status; E66.01 Morbid (severe) obesity due to excess calories; Z68.31 Body mass index [BMI] 31.0-31.9, adult
CPT/HCPCS: 36415; 71045; 74177; 80053; 82962; 84484; 85025; 85610; 85730; 93005; 96360; 96361; 99285; G0480; J3490; Q9967

== ENCOUNTER → 2021-06-15 | Outpatient (CLI) | payer OTHER ==
[2021-05-23 14:43] VITALS: BP 158/102
--- NOTE | 2021-06-15 16:18 | RAD ---
EXAMINATION: CT BILATERAL LOWER EXTREMITIES WITHOUT IV CONTRAST CLINICAL HISTORY: Primary osteoarthritis bilateral knees, preoperative planning. TECHNIQUE: Noncontrast serial axial images obtained through the hips, knees, and ankles with sagittal and coronal reconstructions through the knee utilizing [employer] protocol for preoperative planning. . CT Dose Reduction Employed: One or more of the following individualized dose reduction techniques wer e utilized for this examination: 1. Automated exposure control 2. Adjustment of the mA and/or kV ac cording to patient size 3. Use of iterative reconstruction technique. COMPARISON: None FINDINGS: Tricompartmental degenerative changes bilateral knees, greatest in the lateral and patellofemoral com partments. No acute fracture. Bilateral small patellar enthesophytes. No significant joint effusion. Degenerative changes bilateral hips with mild to moderate axial joint space narrowing, greater on the right. Degenerative changes bilateral SI joints with prominent subchondral sclerosis. Degenerative c hanges in the ankle and midfoot bilaterally, incompletely evaluated. No acute fracture. Bilateral pos terior and plantar calcaneal enthesophytes. Chronic bilateral Achilles tendinosis with tendon thicken ing and calcification near the insertion, incompletely evaluated. Soft tissue thickening and calcific ations along the posterior medial malleolus and navicular bilaterally, suspicious for chronic tendino sis but incompletely evaluated. IMPRESSION: Tricompartmental degenerative changes bilateral knees, greatest in the lateral and patellofemoral com partments. No evidence of acute fracture or unexpected findings at the knees. Chronic findings in the bilateral hips and ankles/feet as described, incompletely evaluated. Electronically signed by: Gavin Stewart DO (06/15/2021 4:15 PM) CLAUDE
== END ==
LOC: CT 14:05
PROVIDERS: ATTEND Orthopaedic Surgery
DX: M17.0 Bilateral primary osteoarthritis of knee (principal); M76.892 Other specified enthesopathies of left lower limb, excluding foot; M76.891 Other specified enthesopathies of right lower limb, excluding foot; M16.0 Bilateral primary osteoarthritis of hip; M53.3 Sacrococcygeal disorders, not elsewhere classified; M19.071 Primary osteoarthritis, right ankle and foot; M19.072 Primary osteoarthritis, left ankle and foot; M77.31 Calcaneal spur, right foot; M77.32 Calcaneal spur, left foot
CPT/HCPCS: 73700

== ENCOUNTER → 2021-08-13 | Outpatient (CLI) | payer OTHER ==
[2021-08-13 08:51] LABS: BASO # 0.1 x10^3/uL (0.0-0.2); BASO % 1 % (0-3); EOS # 0.3 x10^3/uL (0.0-0.7); EOS % 4 % (0-3); HEMOGLOBIN 12.3 g/dL (12.0-15.5); LYMPH # 2.1 x10^3/uL (1.0-4.8); LYMPH % 30 % (24-48); MEAN CORPUSCULAR HEMOGLOBIN 30 pg (25-35); MEAN CORPUSCULAR HGB CONC 33 g/dL (31-37); MEAN CORPUSCULAR VOLUME 89 fL (79-100); MONO # 0.7 x10^3/uL (0.0-1.1); MONO % 10 % (0-9); NEUT # 3.8 x10^3/uL (1.8-7.7); NEUT % 55 % (31-73); PLATELET COUNT 337 x10^3/uL (140-400); RED BLOOD COUNT 4.14 x10^6/uL (3.50-5.40); RED CELL DISTRIBUTION WIDTH 14.7 % (11.5-14.5); WHITE BLOOD COUNT 6.9 x10^3/uL (4.0-11.0)
[2021-08-13 08:56] LABS: ALBUMIN/GLOBULIN RATIO 0.9 (1.0-1.7); CALCIUM 8.5 mg/dL (8.5-10.1); CREATININE 0.8 mg/dL (0.6-1.0); GFR 75.3; POTASSIUM 3.6 mmol/L (3.5-5.1); TOTAL BILIRUBIN 0.2 mg/dL (0.2-1.0); TOTAL PROTEIN 6.4 g/dL (6.4-8.2)
[2021-08-13 08:57] LABS: CHOLESTEROL/HDL RATIO 2.3
[2021-08-13 09:07] LABS: FREE T4 1.16 ng/dL (0.76-1.46); THYROID STIM HORMONE (TSH) 2.777 uIU/mL (0.358-3.74)
[2021-08-13 09:10] LABS: BACTERIA,URINE 0 /HPF (0-FEW); RBC,URINE RARE /HPF (0-2); WBC,URINE 0 /HPF (0-4)
[2021-08-14 01:14] LABS: HEMOGLOBIN A1C 5.1 % (4.8-5.6)
[2021-08-15 13:12] LABS: CREAT RD UR 37.1 mg/dL (Not Estab.); MICRO CREAT RATIO <8 mg/g creat (0-29); MICROALB RD UR <3.0 ug/mL (Not Estab.)
== END ==
LOC: LAB 06:09
PROVIDERS: ATTEND Internal Medicine
DX: E11.9 Type 2 diabetes mellitus without complications (principal); E03.9 Hypothyroidism, unspecified; E16.2 Hypoglycemia, unspecified
CPT/HCPCS: 36415; 80053; 80061; 81001; 82043; 82550; 82570; 83036; 84439; 84443; 85025